=== PATIENT | female | born 1960 | race Caucasian/White ===

== ENCOUNTER 2020-08-07 12:11 | Inpatient (IN) | payer MEDICARE ==
[~2020-08-07] VITALS: Ht 162.6 cm; Wt 63.5 kg
[2020-08-07] MEDS ORDERED: TRAZ-182 PO (13:47)
[2020-08-07] MEDS ORDERED: LITH600C PO (13:47)
[2020-08-07] MEDS ORDERED: CHOL100040 PO (13:47)
[2020-08-07] MEDS ORDERED: LAMO100T17 PO (13:47)
[2020-08-07] MEDS ORDERED: LITH300T3 PO (13:47)
[2020-08-07] MEDS ORDERED: TEMAZEPAM 7.5 MG CAPSULE PO PRN (15:00)
[2020-08-07] MEDS ORDERED: MAG HYDROX/AL HYDROX/SIMETH 30 ML UDC PO PRN (15:00)
[2020-08-07] MEDS ORDERED: BLOOD SUGAR DIAGNOSTIC 1 EACH STRIP IN ONE (15:00)
[2020-08-07] MEDS ORDERED: ACETAMINOPHEN 325 MG TABLET PO PRN (15:00)
[2020-08-07 20:13] VITALS: BP 134/85
--- NOTE | 2020-08-07 21:30 | NUR ---
GPS AUTO ELECTRICIAN NOTES: RECEIVED PATIENT FROM ER VIA STRETCHER ACCOMPANIED BY ER STAFF. PATIENT ADMITTED ON 5150 HOLD FOR DTS AND GD. PER HOLD PATIENT ATTEMPTED TO DROWN HERSELF IN THE OCEAN. UPON FACE TO FACE ASSESSMENT PATIENT APPEARS DEPRESSED, HAS FLAT AFFECT, ALERT AND ORIENTED X3, CALM AND COOPERATIVE, PASSIVE, WITHDRAWN AND ABLE TO MAKE NEEDS KNOWN. PATIENT IS CURRENTLY LAYING ON BED AWAKE WITH EQUAL RISE AND FALL OF THE CHEST. NO S/S OF DISTRESS. PATIENT DENIES SI AND PAIN AT THIS TIME. PATIENT SKIN IS CLEAR AND INTACT. MRSA BOTH NARES SWAPPED. PER PATIENT "I AM HOMELESS". SOCIAL SERVICE CONSULT DONE. PATIENT IS UNDER THE PSYCHIATRIC CARE OF DR CID AND MEDICAL CARE OF [place], BOTH DOCTORS HAVE BEEN INFORMED OF PATIENT ADMISSION AND ORDERS GIVEN. PATIENT BELONGINGS WERE INVENTORIED AND CHECKED FOR CONTRABAND. PATIENT REFUSED TO SIGN ADMISSION PAPERS. PATIENT ORIENTED TO UNIT AND STAFF. PATIENT EDUCATED COLORER MACHINE BORJA. ALL PATIENT QUESTIONS ANSWERED. BED IN LOWEST POSITION AND LOCKED. SIDE RAILS UP X2 FOR SAFETY. Q15 ROUNDS STARTED. WILL CONTINUE AND MONITOR FOR MOOD, SAFETY AND BEHAVIOR. THROUGHOUT SHIFT.
[2020-08-07] MEDS: LITHIUM CARBONATE 150 MG CAPSULE PO SCH (21:35)
[2020-08-07] MEDS: ARIPIPRAZOLE 5 MG TABLET PO SCH (21:36)
[2020-08-07] MEDS: LamoTRIgine 25 MG TABLET PO SCH (21:37)
[2020-08-07] MEDS: TRAZODONE 50 MG TABLET PO SCH (21:37)
[2020-08-08 02:23] VITALS: BP 128/72
[2020-08-08 08:00] VITALS: BP 130/80
[2020-08-08] MEDS: CHOLECALCIFEROL 1,000 UNIT TABLET (VIT D3) PO SCH (08:33)
[2020-08-08] MEDS: LITHIUM CARBONATE 150 MG CAPSULE PO SCH ×2 (08:33→21:17)
--- NOTE | 2020-08-08 10:19 | NUR ---
SW Coordination of Care: This SW sent patient's clinicals to Hiren admin from [facility] ([phone] for review. This SW sent H & P notes, medication list, and laboratory.
--- NOTE | 2020-08-08 10:35 | NUR ---
SW Initial Discharge Plan: Patient is currently homeless and would want this SW to find pt a nursing facility. This SW faxed clinicals to [facility] to admin Hiren ([phone]) for placement. Pt does not have any family at this moment. SW will work with the patient and treatment team to help coordinate proper placement/discharge.
[2020-08-08 17:02] VITALS: BP 111/73
[2020-08-08 20:07] VITALS: BP 104/50
[2020-08-08 20:33] LABS: ALBUMIN 3.1 g/dL (3.4-5.0); BILIRUBIN,TOTAL 0.4 mg/dL (0.2-1.0); CALCIUM, SERUM 9.4 mg/dL (8.5-10.1); CREATININE 0.9 mg/dL (0.6-1.3); POTASSIUM 3.9 mmol/L (3.5-5.1); TOTAL PROTEIN, SERUM 6.1 g/dL (6.4-8.2)
[2020-08-08] MEDS: TRAZODONE 50 MG TABLET PO SCH (21:17)
[2020-08-08] MEDS: LamoTRIgine 25 MG TABLET PO SCH (21:18)
[2020-08-08] MEDS: ARIPIPRAZOLE 5 MG TABLET PO SCH (21:18)
[2020-08-09 08:00] VITALS: BP 111/67
[2020-08-09] MEDS: CHOLECALCIFEROL 1,000 UNIT TABLET (VIT D3) PO SCH (08:38)
[2020-08-09] MEDS: LITHIUM CARBONATE 150 MG CAPSULE PO SCH ×2 (08:38→21:08)
--- NOTE | 2020-08-09 14:36 | NUR ---
RN-CO: PATIENT REFUSED TO PROVIDE URINE SPECIMEN.
--- NOTE | 2020-08-09 14:37 | NUR ---
RN-CO: REFUSED LAB WORKS THIS MORNING.
[2020-08-09 16:00] VITALS: BP 108/66
[2020-08-09 17:45] LABS: BASOPHILS % (AUTO) 0.4 % (0.0-2.0); HEMATOCRIT 37 % (33-45); HEMOGLOBIN 12.7 g/dL (11.5-14.8); LYMPHOCYTES % (AUTO) 32.9 % (20.0-44.0); MEAN CORPUSCULAR HGB CONC 35 g/dl (31.0-36.0); MEAN CORPUSCULAR VOLUME 95 fL (82-100); MONOCYTES # (AUTO) 0.4 /CMM (0.1-1.30); MONOCYTES % (AUTO) 7.2 % (2.0-12.0); NEUTROPHILS # (AUTO) 3.4 /CMM (1.8-8.9); NEUTROPHILS % (AUTO) 57.5 % (43.0-81.0); PLATELET COUNT (AUTO) 194 /CMM (150-450); RED BLOOD CELL COUNT(AUTO) 3.86 MIL/uL (4.0-5.2)
[2020-08-09 17:47] LABS: THYROID STIMULATING HORMONE 0.548 uIU/mL (0.358-3.74)
[2020-08-09 17:55] LABS: CALCIUM, SERUM 9.9 mg/dL (8.5-10.1); CREATININE 0.8 mg/dL (0.6-1.3); MAGNESIUM 2.3 mg/dL (1.8-2.4); PHOSPHORUS 4.5 mg/dL (2.5-4.9)
[2020-08-09 20:21] LABS: BILIRUBIN,URINE NEGATIVE (NEGATIVE); COLOR,URINE YELLOW (YELLOW); LEUKOCYTE ESTERASE ,URINE TRACE (NEGATIVE); NITRITE, URINE NEGATIVE (NEGATIVE); PROTEIN,URINE NEGATIVE (NEGATIVE); UGLUCOSE NEGATIVE (NEGATIVE); UROBILINOGEN,URINE 0.2 EU/dL (0.2)
[2020-08-09 20:29] VITALS: BP_SYST 108; BP_SYST 143; BP_DIAS 74; BP_DIAS 93
[2020-08-09 20:35] LABS: BACTERIA,URINE None seen /HPF (None Seen); HYALINE CASTS, URINE Few /LPF (None Seen); RBC,URINE 0-2 /HPF (0-2); SQUAMOUS EPITHELIAL CELL,UR 0-2 /HPF (None Seen)
[2020-08-09] MEDS: ARIPIPRAZOLE 5 MG TABLET PO SCH (21:07)
[2020-08-09] MEDS: LamoTRIgine 25 MG TABLET PO SCH (21:08)
[2020-08-09] MEDS: TRAZODONE 50 MG TABLET PO SCH (21:08)
--- NOTE | 2020-08-09 22:00 | NUR ---
NURSES NOTES: DR. MAURICE MADE AWARE OF PATIENT'S URINE ANALYSIS RESULTS- NO NEW ORDERS GIVEN THIS TIME.
[2020-08-10] VITALS (7 sets, daily range): BP systolic 100–121; BP diastolic 53–73
--- NOTE | 2020-08-10 04:08 | NUR ---
NURSES NOTES: PATIENT COMPLAINED OF BEING DIZZY, AND NAUSEOUS- PRIOR TO THIS PATIENT GOT UP AND QUICKLY RAN INTO THE BATHROOM, BP [id number] HR-61 O2 SAT- 96%, NO CHEST PAIN, NO SOB. POSITIONED THE PATIENT IN BED. INSTRUCTED PATIENT TO DANGLE FEET PRIOR TO STANDING UP. PROVIDED PATIENT WITH BEDSIDE COMMODE. VITAL RECHECKED 30 MINS AFTER BP- 100/55 HR-60 O2 SAT- 98%. INSTRUCTED PATIENT TO CALL FOR ANY HELP. BED ALARM KEPT ON. WILL CONTINUE TO MONITOR.
--- NOTE | 2020-08-10 08:30 | NUR ---
RN NOTE- PT CAME TO STATION STATING SHE FELL IN BR. VS STABLE SMALL RED ALTHEA ON FOREHEAD NO LOC. YAMILET DEL IRO ORDERED MONITOR AND WILL COMER SEE PT.
[2020-08-10] MEDS: CHOLECALCIFEROL 1,000 UNIT TABLET (VIT D3) PO SCH (09:25)
[2020-08-10] MEDS: LITHIUM CARBONATE 150 MG CAPSULE PO SCH ×2 (09:25→21:00)
--- NOTE | 2020-08-10 10:00 | NUR ---
RN NOTE- MOTION PICTURE SET WORKER ELIANE ASSESS PT. ORTHOSTATICS ORDERED AND CT SCAN WELL. COMPLIED.
[2020-08-10] MEDS: CEPHALEXIN MONOHYDRATE 250 MG CAPSULE PO SCH ×2 (10:26→16:54)
--- NOTE | 2020-08-10 13:06 | NUR ---
Individual Counseling: property worker met with patient for brief counseling to help address patients presenting problem SI. Patient appeared withdrawn and depressed. Patient was vague with her answers and did not want to communicate at this moment. Patient denies SI. SW will follow-up.
--- NOTE | 2020-08-10 18:30 | NUR ---
PT REFUSED AN ECHOCARDIOGRAM AND PREFERS A FEMALE TECH TO SCAN HER. ADVISED NIKITA TALBERT THAT FEMALE TECH WILL BE AVAILABLE TOMORROW.
--- NOTE | 2020-08-10 19:30 | NUR ---
GPS RN NOTE, RECEIVED PATIENT AWAKE AND IN BED, NO S/S OR COMPLAINTS OF PAIN AT THIS TIME. PATIENT IS DISPLAYING NO S/S OF APPARENT DISTRESS AT THIS TIME. PATIENT BREATHING IS UNLABORED WITH EQUAL RISE AND FALL OF THE CHEST. PATIENT IS ALERT AND ORIENTED X 3 ON ROOM AIR WITH A SPO2 97%. PATIENT IS COMPLIANT WITH MEDICATIONS, DEPRESSED, AND COOPERATIVE. PATIENT DENIES SUICIDAL AND HOMICIDAL IDEATIONS AT THIS TIME. PATIENT ASSISTED WITH TURNING AND REPOSITIONING Q2HR AND PRN FOR COMFORT AND CIRCULATION. PATIENT HAS NO NEEDS AT THIS TIME. PATIENT EDUCATED ON THE USE OF THE CALL BORJA. PATIENT BED SIDE RAILS UP X 2 FOR SAFETY. PATIENT BED IS LOCKED, LOW, WITH BED ALARM ON. WILL CONTINUE TO MONITOR THIS PATIENT Q15 MINUTES WITH THE HELP OF STAFF TO MAINTAIN SAFETY.
[2020-08-10] MEDS: TRAZODONE 50 MG TABLET PO SCH (21:03)
[2020-08-10] MEDS: ARIPIPRAZOLE 5 MG TABLET PO SCH (21:03)
--- NOTE | 2020-08-10 21:03 | NUR ---
GPS RN NOTE, PATIENT HAS COMPLAINT OF FEELING LIGHTHEADED AT TIMES. PATIENT VITAL SIGNS ARE STABLE. PAGED DR CID AND INFORMED HIM OF MY FINDINGS. DR CID ORDERED TO HOLD LITHIUM CARBONATE 300MG PO Q12HR, HOLD ABILIFY 5 MG PO HS, TRAZODONE 50 MG PO HS, AND LAMICTAL 25 MG PO HS. ALL ORDERS NOTED AND CARRIED OUT WILL CONTINUE TO MONITOR THIS PATIENT.
[2020-08-10] MEDS: LamoTRIgine 25 MG TABLET PO SCH (21:04)
[2020-08-11 08:00] VITALS: BP 109/68
[2020-08-11] MEDS: CEPHALEXIN MONOHYDRATE 250 MG CAPSULE PO SCH ×2 (08:10→17:00)
[2020-08-11] MEDS: CHOLECALCIFEROL 1,000 UNIT TABLET (VIT D3) PO SCH (08:10)
[2020-08-11] MEDS: LITHIUM CARBONATE 150 MG CAPSULE PO SCH ×2 (08:10→21:00)
[2020-08-11] MEDS: LORAZEPAM 0.5 MG TABLET PO PRN (14:11)
--- NOTE | 2020-08-11 14:59 | NUR ---
RN-CO: ATIVAN PO GIVEN FOR RESTLESSNESS.
[2020-08-11 16:00] VITALS: BP 114/64
--- NOTE | 2020-08-11 19:30 | NUR ---
GPS RN NOTE, RECEIVED PATIENT AWAKE AND IN BED, NO S/S OR COMPLAINTS OF PAIN AT THIS TIME. PATIENT IS DISPLAYING NO S/S OF APPARENT DISTRESS AT THIS TIME. PATIENT BREATHING IS UNLABORED WITH EQUAL RISE AND FALL OF THE CHEST. PATIENT IS ALERT AND ORIENTED X 2 ON ROOM AIR WITH A SPO2 97%. PATIENT IS COMPLIANT WITH MEDICATIONS, DEPRESSED, CONFUSED AT TIMES, AND COOPERATIVE. PATIENT DENIES SUICIDAL AND HOMICIDAL IDEATIONS AT THIS TIME. PATIENT ASSISTED WITH TURNING AND REPOSITIONING Q2HR AND PRN FOR COMFORT AND CIRCULATION. PATIENT HAS NO NEEDS AT THIS TIME. PATIENT EDUCATED ON THE USE OF THE CALL BORJA. PATIENT BED SIDE RAILS UP X 2 FOR SAFETY. PATIENT BED IS LOCKED, LOW, WITH BED ALARM ON. WILL CONTINUE TO MONITOR THIS PATIENT Q15 MINUTES WITH THE HELP OF STAFF TO MAINTAIN SAFETY.
[2020-08-11 20:08] VITALS: BP 120/75
[2020-08-11] MEDS: TRAZODONE 50 MG TABLET PO SCH (21:53)
[2020-08-11] MEDS: LamoTRIgine 25 MG TABLET PO SCH (21:53)
[2020-08-11] MEDS: OLANZAPINE ZYDIS 5 MG TAB.RAPDIS PO SCH (21:53)
--- NOTE | 2020-08-11 21:53 | NUR ---
GPS RN NOTE, PATIENT REFUSED LITHIUM CARBONATE 300MG PO Q12HR, TRAZODONE 50 MG PO HS, LAMICTAL 25 MG PO HS, AND ZYPREXA 5MG PO HS. OFFERED THREE TIMES AND STILL PATIENT REFUSED BY SHAKING HER HEAD NO. EDUCATED PATIENT ON THE RISKS AND BENEFITS OF TAKING AND REFUSING AFOREMENTIONED MEDICATION. WILL CONTINUE TO MONITOR THIS PATIENT.
[2020-08-12 08:00] VITALS: BP 116/71
[2020-08-12] MEDS: CHOLECALCIFEROL 1,000 UNIT TABLET (VIT D3) PO SCH (08:59)
[2020-08-12] MEDS: LITHIUM CARBONATE 150 MG CAPSULE PO SCH ×2 (08:59→21:21)
[2020-08-12] MEDS: CEPHALEXIN MONOHYDRATE 250 MG CAPSULE PO SCH ×2 (08:59→16:29)
[2020-08-12 16:00] VITALS: BP 112/71
[2020-08-12 20:00] VITALS: BP 120/67
[2020-08-12] MEDS: TRAZODONE 50 MG TABLET PO SCH (21:20)
[2020-08-12] MEDS: OLANZAPINE ZYDIS 5 MG TAB.RAPDIS PO SCH (21:20)
[2020-08-12] MEDS: LamoTRIgine 25 MG TABLET PO SCH (21:21)
[2020-08-13 08:00] VITALS: BP 108/67
[2020-08-13] MEDS: LITHIUM CARBONATE 150 MG CAPSULE PO SCH ×2 (08:30→21:25)
[2020-08-13] MEDS: CEPHALEXIN MONOHYDRATE 250 MG CAPSULE PO SCH ×2 (08:30→17:46)
[2020-08-13] MEDS: CHOLECALCIFEROL 1,000 UNIT TABLET (VIT D3) PO SCH (08:30)
--- NOTE | 2020-08-13 11:26 | NUR ---
Probable Cause Hearing: Pts [id number] hold was upheld for grave disability.
[2020-08-13 16:00] VITALS: BP 145/69
[2020-08-13 21:03] VITALS: BP 103/66
[2020-08-13] MEDS: TRAZODONE 50 MG TABLET PO SCH (21:25)
[2020-08-13] MEDS: OLANZAPINE ZYDIS 5 MG TAB.RAPDIS PO SCH (21:25)
[2020-08-13] MEDS: LamoTRIgine 25 MG TABLET PO SCH (21:25)
[2020-08-14 08:00] VITALS: BP 96/61
[2020-08-14] MEDS: LITHIUM CARBONATE 150 MG CAPSULE PO SCH ×2 (08:35→21:26)
[2020-08-14] MEDS: CEPHALEXIN MONOHYDRATE 250 MG CAPSULE PO SCH ×2 (08:35→17:53)
[2020-08-14] MEDS: CHOLECALCIFEROL 1,000 UNIT TABLET (VIT D3) PO SCH (08:35)
[2020-08-14 16:00] VITALS: BP 110/63
[2020-08-14 20:38] VITALS: BP 103/66
[2020-08-14] MEDS: TRAZODONE 50 MG TABLET PO SCH (21:26)
[2020-08-14] MEDS: LamoTRIgine 25 MG TABLET PO SCH (21:26)
[2020-08-14] MEDS: OLANZAPINE ZYDIS 5 MG TAB.RAPDIS PO SCH (21:26)
[2020-08-15 08:00] VITALS: BP 113/62
[2020-08-15] MEDS: CHOLECALCIFEROL 1,000 UNIT TABLET (VIT D3) PO SCH (08:17)
[2020-08-15] MEDS: CEPHALEXIN MONOHYDRATE 250 MG CAPSULE PO SCH ×2 (08:17→16:25)
[2020-08-15] MEDS: LITHIUM CARBONATE 150 MG CAPSULE PO SCH ×2 (08:17→21:10)
[2020-08-15 16:00] VITALS: BP 100/58
[2020-08-15 20:51] VITALS: BP 116/52
[2020-08-15] MEDS: TRAZODONE 50 MG TABLET PO SCH (21:10)
[2020-08-15] MEDS: LamoTRIgine 25 MG TABLET PO SCH (21:10)
[2020-08-15] MEDS: OLANZAPINE ZYDIS 5 MG TAB.RAPDIS PO SCH (21:11)
[2020-08-16 08:00] VITALS: BP 113/67
[2020-08-16] MEDS: LITHIUM CARBONATE 150 MG CAPSULE PO SCH ×2 (08:33→21:32)
[2020-08-16] MEDS: CEPHALEXIN MONOHYDRATE 250 MG CAPSULE PO SCH ×2 (08:33→16:18)
[2020-08-16] MEDS: CHOLECALCIFEROL 1,000 UNIT TABLET (VIT D3) PO SCH (08:33)
[2020-08-16] MEDS: MAGNESIUM HYDROXIDE 30 ML UDC PO PRN (13:31)
--- NOTE | 2020-08-16 13:32 | NUR ---
MARKCO: MOM GIVEN FOR C/O CONSTIPATION.
--- NOTE | 2020-08-16 14:11 | NUR ---
Individual Intervention: SW met with the pt at bedside and informed her that the pt was going to be discharged to a SNF the following day and she stated that was not aware that was her discharge plan. SW inquired about whether or not she objects to the plan and she stated that she does not because she does not have anywhere else to go. Pt appeared to be agitated and informed the SW that she does not want to speak any further.
[2020-08-16 16:00] VITALS: BP 135/71
--- NOTE | 2020-08-16 19:30 | NUR ---
GPS RN NOTE, RECEIVED PATIENT AWAKE AND IN BED, NO S/S OR COMPLAINTS OF PAIN AT THIS TIME. PATIENT IS DISPLAYING NO S/S OF APPARENT DISTRESS AT THIS TIME. PATIENT BREATHING IS UNLABORED WITH EQUAL RISE AND FALL OF THE CHEST. PATIENT IS ALERT AND ORIENTED X 3 ON ROOM AIR WITH A SPO2 99%. PATIENT IS COMPLIANT WITH MEDICATIONS, DEPRESSED, CALM, UNMOTIVATED, MAKES NEEDS KNOWN, AND COOPERATIVE. PATIENT DENIES SUICIDAL AND HOMICIDAL IDEATIONS AT THIS TIME. PATIENT ASSISTED WITH TURNING AND REPOSITIONING Q2HR AND PRN FOR COMFORT AND CIRCULATION. PATIENT HAS NO NEEDS AT THIS TIME. PATIENT EDUCATED ON THE USE OF THE CALL BORJA. PATIENT BED SIDE RAILS UP X 2 FOR SAFETY. PATIENT BED IS LOCKED, LOW, WITH BED ALARM ON. WILL CONTINUE TO MONITOR THIS PATIENT Q15 MINUTES WITH THE HELP OF STAFF TO MAINTAIN SAFETY.
[2020-08-16 20:28] VITALS: BP 99/65
[2020-08-16] MEDS: LamoTRIgine 25 MG TABLET PO SCH (21:32)
[2020-08-16] MEDS: TRAZODONE 50 MG TABLET PO SCH (21:32)
[2020-08-16] MEDS: OLANZAPINE ZYDIS 5 MG TAB.RAPDIS PO SCH (21:32)
[2020-08-17] MEDS: LORAZEPAM 0.5 MG TABLET PO PRN (02:32)
--- NOTE | 2020-08-17 02:34 | NUR ---
GPS RN NOTE, PATIENT HAS A COMPLAINT OF FEELING ANXIOUS AND IS REQUESTING ATIVAN AT THIS TIME. PATIENT VITAL SIGNS ARE STABLE. GAVE ATIVAN 0.5 MG PO Q6HR PRN ORDERED. WILL REASSESS FOR ANXIETY AND I WILL CONTINUE TO MONITOR THIS PATIENT.
--- NOTE | 2020-08-17 07:35 | NUR ---
RN OPEN NOTES RECEIVED PATIENT AWAKE AND IN BED, NO SIGNS OF DISTRESS IN ROOM AIR SPO2 100%. NO COMPLAINTS OF PAIN AT THIS TIME. PATIENT IS ALERT AND ORIENTED WITH NAME,PLACE AND SITUATION.PATIENT IS COMPLIANT WITH MEDICATIONS, DEPRESSED, CALM, UNMOTIVATED, MAKES NEEDS KNOWN, AND COOPERATIVE. PATIENT DENIES SUICIDAL AND HOMICIDAL IDEATIONS AT THIS TIME. PATIENT BED SIDE RAILS UP X 2 FOR SAFETY. PATIENT BED IS LOCKED, LOW, WITH BED ALARM ON. WILL CONTINUE TO MONITOR.
[2020-08-17 08:00] VITALS: BP 102/61
[2020-08-17] MEDS: CHOLECALCIFEROL 1,000 UNIT TABLET (VIT D3) PO SCH (08:58)
[2020-08-17] MEDS: LITHIUM CARBONATE 150 MG CAPSULE PO SCH (08:58)
[2020-08-17] MEDS: CEPHALEXIN MONOHYDRATE 250 MG CAPSULE PO SCH (08:59)
[2020-08-17] MEDS: MAGNESIUM HYDROXIDE 30 ML UDC PO PRN (10:46)
--- NOTE | 2020-08-17 13:10 | NUR ---
SNF Contact: RENÉE faxed updated notes and a COVID result to [facility] with attn to Hiren to the fax number: [phone].
--- NOTE | 2020-08-17 14:10 | NUR ---
Discharge Note: Pt will be discharged to [facility] ([facility]) [place] at [address] [place] [address]; ([phone]). Pt will be transported via [facility] at 3PM. There was no one to notify of the discharge. Upon discharge, pt appears to be in a dysphoric mood and presented with a calm affect. Pt denies both suicidal and homicidal ideation as well as auditory and visual hallucinations. Pt appears to be alert and oriented x3 (time, place, and self). Pt appears to be ambulatory with an unsteady gait. Pt appears to be disheveled yet appropriately dressed. Pt will continue to be under the care of psychiatrist, Dr. Villalobos, [place] at [address] [place] [address]; and bill collector, Dr. Beauchamp, located at [address] [place] [address]; . Pt signed the Choice of Vendor form and the homeless waiver which were placed in the chart. RENÉE provided patient with the [id number] [employer] Winter Alf Program list. RENÉE provided patient with a copy of the [facility] homeless directory which provides information on locations for hot meals, sack lunches, food pantries, and showers. RENÉE provided an additional list of mental health clinics: [facility] [address] [place] [address] ([phone]); [facility] [address] [place] [address] ([phone]); a list of medical clinics; [facility] [address] [facility] [address], [place]. [place], ; [facility] [address] [facility], [address]. RENÉE Provided [facility] [address] [place] [address]: ([phone]). Patient was provided with a brief substance abuse intervention and referred to the following substance abuse programs: [facility] Substance Abuse Self-helpline ([phone]); [facility] [address] [place] [address] ([phone]); [facility] [address] [facility] [place] [address] ([phone]); [facility] ([phone]); [facility] ([phone]); [facility] ([phone]); [facility] ([phone]). The multidisciplinary exit care form was done, printed, signed, and given to the patient.
--- NOTE | 2020-08-17 15:30 | NUR ---
tube and rod straightener note Patient discharged at [facility] at this time via gurney and ambulance. Patient vital signs are stable a/o x 4. Denies SI, HI, AH and VH at present. Skin is intact photo taken of right nares small red area and left foot ankle and placed in chart. Valuables returned and signed for, ID wrist band removed and escorted out unit by staff. Addendum: 08/17/20 at 1535 by TAL FERNANDEZ RN PT refused pneumonia and flu vaccine.
== END 2020-08-17 15:30 | DRG 885 ==
LOC: GPS 12:35
PROVIDERS: ADMIT Psychiatry & Neurology Psychiatry; ATTEND Nurse Practitioner Acute Care
DX: F31.64 Bipolar disorder, current episode mixed, severe, with psychotic features (principal); N39.0 Urinary tract infection, site not specified; F41.9 Anxiety disorder, unspecified; F29 Unspecified psychosis not due to a substance or known physiological condition; Z91.14 Patient's other noncompliance with medication regimen; R79.89 Other specified abnormal findings of blood chemistry; Z59.0 Homelessness; Z86.59 Personal history of other mental and behavioral disorders
CPT/HCPCS: 36415; 70450-TC; 80048-TC; 80053-TC; 80061-TC; 81001; 83735-TC; 84100-TC; 84443-TC; 85025-TC; 93307-TC